=== PATIENT | male | born 1995 | race Caucasian/White ===

== ENCOUNTER 2019-10-26 19:22 | Emergency (ER) | payer MEDICAID ==
[~2019-10-26] VITALS: Ht 188 cm; Wt 118.2 kg
[2019-10-26] MEDS ORDERED: LIDOcaine 1% W/epiNEPHrine 1:200,000 10ml vial IJ ONE (19:25)
[2019-10-26] MEDS ORDERED: TETanus/Pertussis (Acell)/Diphther VAC/PF (Tdap-Adult) 0.5ml syringe IMVAC ONE (19:25)
[2019-10-26 20:20] VITALS: BP 143/93
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
== END 2019-10-26 20:23 | disposition home or self-care (01) ==
LOC: ER 19:23
DX: S51.812A Laceration without foreign body of left forearm, initial encounter (principal); I10 Essential (primary) hypertension; Z88.0 Allergy status to penicillin; W25.XXXA Contact with sharp glass, initial encounter; Y93.89 Activity, other specified; Y92.89 Other specified places as the place of occurrence of the external cause; Y99.8 Other external cause status
CPT/HCPCS: 12002; 73090; 90471; 90715; 99283